=== PATIENT | male | born 1955 | race African-American/Black ===

== ENCOUNTER 2017-02-18 19:47 | Inpatient (IN) | payer OTHER ==
[~2017-02-18] VITALS: Ht 162.6 cm; Wt 59.6 kg
--- NOTE | ~2017-02-18 | CT23 ---
[facility] A Service of [facility] RADIOLOGY TEXT RESULTS PATIENT: DONN HAMM LOCATION: [facility] 338- : 57 UNIT #: [id number] AGE: [address]: Edmund Posada MD SEX: M ORDER DR: [id number] [facility] [address] [facility]. [place], [place] [address] [id number] I MR#: [id number] #: [id number] NAME: DONN HAMM : 1955 SEX: M STUDY DATE/TIME: 02/18/2017 23:31 UNIT: [address] ROOM: [facility] STUDY DESCRIPTION: CT Angio Neck Attending Physician: Edmund Posada M.D. Ordering Physician: Chuy Edmondson M.D. Primary Care Physician: No Primary Care Physician MEDICAL IMAGING REPORT This report is preliminary unless electronic signature is present EXAM Head and neck CT angiogram with contrast. DATE OF STUDY 02/18/2017 PROCEDURE Axial contrast-enhanced head and neck CT angiogram with three-dimensional reformats. This CT exam was performed with one or more of the following radiation dose reduction techniques: automatic exposure control, adjustment of mA and/or kV according to patient size, and iterative reconstruction. COMPARISON Head CT same date. CLINICAL HISTORY Left arm numbness and tingling paresthesias since 0600 on the morning of the exam with left monocular blurred vision. FINDINGS There is a normal arch branching pattern. There is no proximal great vessel stenosis. There is left vertebral dominance but both vessels are widely patent from their origins. The cervical common carotid and carotid bifurcations are normal without plaque or stenosis by NASCET or other criteria. The upper cervical internal carotids are normal. Both vertebral arteries contribute to the basilar artery. The anterior communicator is patent. The posterior communicators are probably patent bilaterally. There is intracranial vessel irregularity but no aneurysm. There is abrupt occlusion of the right posterior cerebral artery at about the level of the P1/P2 junction. There is [facility] A Service of [facility] RADIOLOGY TEXT RESULTS PATIENT: DONN HAMM [id number] : [birth year] UNIT #: [id number] AGE: [address]: Edmund Posada MD SEX: M ORDER DR: hypoperfusion in the right occipital lobe and the distal right posterior cerebral artery territory. Findings appear to indicate a completed right ACCOUNTS RECEIVABLE ACCOUNTANT territory infarct without hemorrhagic conversion. Other areas of vessel narrowing and irregularity are seen but without convincing evidence of any other branch vessel occlusion. The dural venous sinuses are normal. There is no mass or abnormal enhancement. There is encephalomalacia in the right cerebellar hemisphere, and it is unclear whether the changes in the right occipital lobe are acute or chronic, though it is possible that there are components of both. IMPRESSION 1. The extracranial circulation is normal. There is no stenosis at either carotid bifurcation by NASCET criteria and in fact the carotid bifurcations appear normal without plaque or narrowing or irregularity of any kind. The vertebral arteries are patent as well. 2. Intracranially, there is fairly abrupt occlusion of the right posterior cerebral artery at the P1/P2 junction. There is hypoperfusion in the right ACCOUNTS RECEIVABLE ACCOUNTANT territory and there is at least a completed right ACCOUNTS RECEIVABLE ACCOUNTANT territory infarct, though it is possible that the findings there are chronic, in fact, the unenhanced head CT suggests a more chronic process. There is right cerebellar encephalomalacia as well. 3. There is no intracranial hemorrhage and while there is moderate intracranial vessel irregularity with some areas of narrowing, no high-grade stenosis is seen and there is no intracranial aneurysm. The [place] of [place] appears probably complete. 4. Otherwise, the cervical soft tissues are unremarkable. There is dental and periodontal disease but almost certainly better assessed on physical exam and dental radiography. There is maxillary sinus mucosal thickening as well. Dictated by... Lyle Grey M.D. THIS IS AN ELECTRONICALLY VERIFIED REPORT Lyle Grey M.D. at 02/19/2017 4:58 PM PATRIZIA/ivonne TD: 02/19/2017 09:29 JOB #: [id number] MEDICAL IMAGING REPORT Page 1 of 1 COPY
--- NOTE | ~2017-02-18 | EKG ---
PATIENT: DONN HAMM UNIT #: [id number] Ventricular Rate: 56 BPM Atrial Rate: 56 BPM P-R Interval: 170 ms QRS Duration: 88 ms Q-T Interval: 396 ms QTC Calculation(Bezet): 382 ms P [place]: 32 degrees Calculated R [place]: 41 degrees Calculated T [place]: 47 degrees Diagnosis Line: Sinus bradycardia Diagnosis Line: Otherwise normal ECG Diagnosis Line: No previous ECGs available Diagnosis Line: Confirmed by MARIXA FRANK MD ([id number]) on 02/20/2017 Diagnosis Line: 4:54:54 PM INTERPRETING MD: ZAC ARMANDO
--- NOTE | ~2017-02-18 | CT71 ---
[facility] A Service of [facility] RADIOLOGY TEXT RESULTS PATIENT: DONN HAMM LOCATION: [facility] 338-01 : 59 UNIT #: [id number] AGE: [address]: Edmund Posada MD SEX: M ORDER DR: [id number] [place] [id number] [facility]. [place], [place] [address] [id number] I MR#: [id number] Acc #: [id number] NAME: DONN HAMM : 1955 SEX: M STUDY DATE/TIME: 02/18/2017 23:29 UNIT: [address] ROOM: [facility] STUDY DESCRIPTION: CT Head Wo Contrast Attending Physician: Edmund Posada M.D. Ordering Physician: Chuy Edmondson M.D. MEDICAL IMAGING REPORT This report is preliminary unless electronic signature is present EXAM CT head, noncontrast, 02/18/2017 HISTORY 61-year-old male in the ED with new onset neurologic deficit today. He describes left arm numbness and tingling and blurred left eye vision beginning at about [address] examination of the head without IV contrast. This CT exam was performed with one or more of the following radiation dose reduction techniques: automatic exposure control, adjustment of mA and/or kV according to patient size, and iterative reconstruction. FINDINGS The examination shows subacute infarct in the territory of the right posterior cerebral artery involving the midline occipital lobe and extending forward into the temporal lobe adjacent to the thalamus. No evidence of hemorrhage. No additional intracranial lesion is identified. Followup MRI examination of the brain is recommended. IMPRESSION 1. Subacute infarct in the territory of the right posterior cerebral artery involving temporal and midline occipital lobes. No evidence of hemorrhage. No additional intracranial lesion is demonstrated. 2. Followup MRI examination of the brain is recommended. CTA examination is pending. STAT * RESULT [facility] A Service [facility] RADIOLOGY TEXT RESULTS PATIENT: DONN HAMM LOCATION: [facility] 338-01 : 59 UNIT #: [id number] AGE: [address]: Edmund Posada MD SEX: M ORDER DR: Dictated by... Karel Rivers M.D. THIS IS AN ELECTRONICALLY VERIFIED REPORT Karel Rivers M.D. at 02/19/2017 9:48 PM RAGHU/ryan TD: 02/19/2017 00:31 JOB #: [id number] MEDICAL IMAGING REPORT Page 1 of 1 COPY
--- NOTE | ~2017-02-18 | DS ---
Unit #: [id number] #: [id number] Patient: DONN HAMM [id number] [address] [place], [place] [address] [id number] I MR#: [id number] NAME: DONN HAMM ROOM: 338 Age: 61 Sex: M Admission Date: 02/19/2017 : 1955 Discharge Date: 02/24/2017 Attending Physician: Torres Churchill M.D. Primary Care Physician: No Primary Care Physician DISCHARGE SUMMARY REASON FOR ADMISSION Right posterior circulation, arterial stroke. HISTORY OF PRESENT ILLNESS/HOSPITAL COURSE Please see H and P for initial part of hospital stay. Patient underwent an MRI of brain without contrast, dictated and dated on 02/19/2017. Findings were consistent with large thromboembolic insult on the right posterior cerebral artery distribution. There was local mass effect but no hemorrhagic transverse transformation , which was noted. The patient subsequently was placed under stroke protocol. Dr. Obrien was consulted from neurology services. Patient ultimately underwent 2D echocardiogram, which did show patent PFO, ejection fraction 60% to 65%. At this point in time, patient has gone through physical and occupational therapy. Initially recommendations was made for him to be transferred to rehab facility; however, per physical and occupational therapy he is now much more independent and is able to ambulate approximately 500 feet and therefore, stable for discharge home. Dr. Obrien has recommended Coumadin to be initiated in approximately four to six weeks. At this point in time, the patient will be discharged home. He will followup with his primary care physician in two to three weeks and in approximately four to six weeks post stroke he should be started on Coumadin with INR dosage between two to three. FINAL DISCHARGE DIAGNOSES 1. Acute cerebrovascular accident, posterior circulation. 2. 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 3. Hypertension. 4. Hyperlipidemia. DISCHARGE MEDICATIONS 1. Lotrel 5/20 one tablet p.o. daily. 2. Lipitor 80 mg p.o. q.h.s. 3. Aspirin 325 mg p.o. daily. DISCHARGE CONDITION Stable. DISCHARGE DISPOSITION Home. Home health to follow at time of discharge. Unit #: [id number] #: [id number] Patient: DONN HAMM Dictated by... Torres Churchill M.D. ISN/ts TD: 02/25/2017 12:11 JOB #: [id number] DISCHARGE SUMMARY Page 1 of 1 X Torres Churchill MD DISCHARGE SUMMARY
--- NOTE | ~2017-02-18 | A ---
[facility] Nutrition Therapy DATE: 02/20/17 Patient: DONN HAMM Physician: JOURDAN Address: [address] [place] [address] Room/Bed: [address] [place] [address], Zip: [place] [address] Admit Date: 02/19/17 Date of : 59 Height: 5 4 Weight: 134 61 NUTRITIONAL ASSESSMENT: REASON: Seen due to diagnosis Admitting dx: 61 y/o male admitted with CVA (MRI confirmed) PMH: HTN, HLD Anthropometrics: Ht: 64", Wt: 61 kg, BMI: 23 (normal) Labs: Cholesterol 225, LDL cholesterol 143 Assessment: Chart reviewed, events noted. See admitting dx and PMH as stated above. The patient is on a healthy heart diet, which he is tolerating with no chewing or swallowing difficulties. He consumed ~75% of his lunch. He is interest in healthy heart diet education, which was provided both verbally and with handouts. He showed limited understanding, did not ask questions. RD explained relationship between diet and heart disease/stroke risk. The patient was encouraged to maintain his current weight. RD left contact info for any further questions. Recommendations: Agree with healthy heart diet. Diet education was provided as stated above, RD contact info left. Please consult with any further nutritional needs. Respectfully, Saira Reese RD, [facility] [employer] [facility] cc: client file
--- NOTE | ~2017-02-18 | HM ---
Unit #: [id number] #: [id number] Patient: DONN HAMM [id number] [address] [address] [id number] I MR#: [id number] NAME: DONN HAMM : 1955 SEX: M STUDY DATE/TIME: UNIT: C3A U ROOM: [address] [place] [address] DESCRIPTION: Holter Monitor Attending Physician: Torres Churchill M.D. Primary Care Physician: Primary Care Physician No CARDIOLOGY REPORT EXAM Holter Monitor DATE APPLIED 02/19/2017 DATE SCANNED 02/25/[address] Ponce READ BY Dr. Shanel Vera REASON FOR TEST CVA COMMENTS 1. Underlying rhythm is normal sinus. Average heart rate is 64 beats per minute with a maximal recorded heart rate of 118 beats per minute and minimal recorded heart rate of 51 beats per minute. 2. A total of 41 isolated PVCs were seen in 24 hours without couplets or ventricular tachycardia. 3. A total of 4 premature atrial contractions are noted in 24 hours. There were no premature atrial couplets or atrial tachycardia. 4. No AV leonela block, sinus arrest or sinus pause is noted. IMPRESSION 24 hour ambulatory monitoring is within normal limits with rare PACs and rare PVCs. Dictated by... Dennys Bravo/lina TD: 02/26/2017 08:23 JOB #: [id number] Unit #: [id number] #: [id number] Patient: DONN HAMM CARDIOLOGY REPORT Page 1 of 1 X Adis Vera MD HOLTER MONITOR REPORT
--- NOTE | ~2017-02-18 | CO ---
Unit #: [id number] #: [id number] Patient: DONN HAMM [id number] [facility] [address] [facility]. [place], [place] [address] [id number] I MR#: [id number] NAME: DONN HAMM ROOM: 338 Age: 61 Sex: M Admission Date: 02/19/2017 : 1955 Attending Physician: Edmund Posada M.D. Primary Care Physician: Sophie Primary Care Physician Requesting Physician: Tiny Ponce M.D. Consultation Date: 02/19/2017 CONSULTATION REPORT REASON FOR CONSULTATION Stroke. PATIENT IDENTIFICATION This is a 61-year-old, right-handed, Prydeinig gentleman who was seen in room 338 at [facility]. SOURCE OF INFORMATION The patient and very detailed evaluation done by Dr. Ponce. PROBLEM LIST 1. Hypertension. 2. Hyperlipidemia. 3. He reports some marijuana use. HISTORY OF PRESENT ILLNESS This is a very pleasant, 61-year-old gentleman who actually presented with some vision changes and left-sided weakness. He presented at 7:47 p.m. yesterday and reported that the symptoms started in the morning when he woke up so he was not a TPA or intervention candidate. He ended up with a CT scan and CT scan did show significant changes in the right CERTIFIED PROSTHETIST/ORTHOTIST territory, but other areas may be involved and his MRI is pending. His CT also showed abnormalities and, specifically, one of the biggest concerns was right CERTIFIED PROSTHETIST/ORTHOTIST, likely occlusion. He is hypertension. His LDL is 147. His random glucose was high so 1 of the concern is that could he have other reasons like dysrhythmia, especially considering the posterior circulation type stroke. His echo and other results are pending. He never had TIAs. He does not use aspirin. No other drugs. No falls of injuries. No stroke in past, but have strokes in family. He is on pravastatin 20 mg for quite some time. PAST MEDICAL HISTORY As discussed above. PAST SURGICAL HISTORY Unit #: [id number] #: [id number] Patient: DONN HAMM None. ALLERGIES None. HOME MEDICATIONS 1. Lotrel. 2. I believe he was using pravastatin 20 mg. FAMILY HISTORY Strokes. SOCIAL HISTORY He lives with his son. He is originally from [facility]. Never smoked tobacco, but occasionally uses marijuana. Does not drink alcohol. REVIEW OF SYSTEMS Left-sided weakness, some vision changes. He denies any speech problems, fever, chills, rigors, or sweats. He denies any weight issues. HEENT: Left-sided vision changes. No neck problems. CARDIOVASCULAR: No chest pain, clubbing, cyanosis, orthopnea. No palpitations. PULMONARY: No shortness of air, cough, or expectoration. GASTROINTESTINAL: No nausea, vomiting, diarrhea, or constipation. GENITOURINARY: No genitourinary symptoms. MUSCULOSKELETAL: Extremity problems: Left-sided ataxia. No back problems. PSYCHIATRIC: No psychiatric issues. NEUROLOGIC: Issues with new stroke with deficit as discussed. No other hematologic, dermatologic, or endocrine problems. PHYSICAL EXAMINATION VITAL SIGNS: Temperature 98.2, pulse is 58, respirations are 16, blood pressure 142/86. Blood pressure went as high as 160 systolic and 105 diastolic. O2 sats are 97% to 100%. Weight of 134 pounds. BMI was 23. NEUROLOGIC EXAMINATION: The patient is awake. He is alert. He is oriented. He can name and he can follow commands. No right left confusion. No finger agnosia. CRANIAL NERVES: Examination demonstrates left homonomous hemianopia. Pupils are round and reactive to light and accommodation. Sensation on the face and scalp are normal. There may be minimal ptosis on the left side. I do not see any significant facial asymmetry otherwise. Hearing is intact. Tongue was midline and could not visualize his oropharynx or uvula. Head turning was spontaneous. MOTOR EXAMINATION: He has normal bulk and tone, but he is ataxic on the left side. There may be subtle weakness and drift in the left upper extremity and, also, left lower extremity. SENSORY EXAMINATION: He definitely has extinction on the left side. COORDINATION: Significant ataxia on the left side. Romberg negative. REFLEXES: Toes are moot. DIAGNOSTIC STUDIES Labs and imaging studies reviewed personally. IMPRESSION Right hemispheric stroke and it looks like there is definitely right CERTIFIED PROSTHETIST/ORTHOTIST infarct, but he has significant ataxia and he has neglect so probably Unit #: [id number] #: [id number] Patient: DONN HAMM parietal lobe involvement. Definitely we need to get a MRI. I also would request BOB and event monitor like Holter monitor to begin with. I will put him on aspirin and high dose Lipitor and we will go from there. Further treatment will be based on our findings and he probably will end up needing physical therapy and occupational therapy. Discussed with the team and stroke workup initiated and will follow up. I will keep you informed. Call me for any other questions, issues, or concerns. Dictated by... Dennys March/maida TD: 02/20/2017 07:39 JOB #: [id number] CONSULTATION REPORT Page 1 of 1 X Colt Obrien MD X CONSULTATION REPORT
--- NOTE | ~2017-02-18 | HP ---
Unit #: [id number] #: [id number] Patient: DONN HAMM [id number] [address] [place], [place] [address] [id number] I MR#: [id number] NAME: DONN HAMM ROOM: 338 Age: 61 Sex: M Admission Date: 02/19/2017 : 1955 Attending Physician: Tiny Ponce M.D. Primary Care Physician: No Primary Care Physician HISTORY AND PHYSICAL CHIEF COMPLAINT Right posterior circulation artery stroke. HISTORY This very pleasant 61-year-old male with hypertension and hyperlipidemia, is admitted for a stroke. The patient states he was well until early yesterday morning. He began to note left arm weakness and numbness with numbness in the left foot, left side of the head along with visual changes. He, therefore, presented to this emergency department at about 7:45 last evening outside the stroke window. A stat CT was performed showing a subacute CVA in the region of the right TCA. Wet read on the CTA shows an isolated abrupt occlusion of the P2 right REAL PROPERTY EVALUATOR. On examination, the patient has left hemianopsia with what I believe to be mild left sided neglect. If I get the patient to focus on his left side, he is still quite strong on the left, is a bit numb on the left as compared to the right but I believe he is fairly strong. In the ER he was treated with aspirin and potassium. PAST MEDICAL HISTORY 1. Essential hypertension. 2. Hyperlipidemia. ALLERGIES None. HOME MEDICATIONS 1. Pravachol 20 mg q. h.s. 2. Lotrel 5/20 mg daily. FAMILY HISTORY CVA. SOCIAL HISTORY The patient is originally from [facility]. He lives with his son. He never smoked tobacco, he does smoke occasional THC but denies other illicit drugs. Does not drink alcohol. REVIEW OF SYSTEMS Notable for visual changes, left sided numbness, weakness, hypertension, hyperlipidemia. All other systems were reviewed and otherwise negative. PHYSICAL EXAMINATION GENERAL: Very pleasant, thin, 61-year-old male, currently in no acute Unit #: [id number] #: [id number] Patient: DONN HAMM distress. VITAL SIGNS: Temperature 97, pulse 66, respirations 14, initial blood pressure 160/102 which has improved to 158/89. O2 saturation is 97% on room air. HEENT: Eyes PERRLA. Extraocular muscles are intact. Patient, however, has a left hemianopsia on exam. His pharynx is benign. NECK: Supple without adenopathy, thyromegaly or carotid bruits. CHEST: Clear. CARDIAC: Normal S1 and S2 without S3, S4 or murmur. ABDOMEN: Bowel sounds are present. No hepatosplenomegaly, tenderness or masses. EXTREMITIES: Without C, C or E. Pedal pulses are present. No ulcers on the feet. NEUROLOGIC EXAM: Patient is awake, alert, oriented x3. His cranial nerves are notable for a left hemianopsia. Although he has fairly equal strength throughout, he does have an element of left sided neglect. I have to remind him to use his left side. If I can remind him to use his left side, I do not believe he truly has a left pronator drift. He has decreased sensation subjectively on the left as compared to the right. Speech is fluent. DIAGNOSTIC STUDIES LABORATORY: Hematocrit is 45.3, normal white count and platelet count, MCV. Negative cardiac enzymes. Normal coags. SMA-12 - notable for potassium of 3.1. IMAGING: Noncontrasted head CT shows subacute CVA in the region of the right posterior circulation artery. Wet read on the CTA of the brain shows an isolated abrupt occlusion of the P2 right posterior circulation artery segment. ASSESSMENT 1. Right REAL PROPERTY EVALUATOR CVA with symptoms starting yesterday morning outside the tPA window. CT scan shows a subacute right REAL PROPERTY EVALUATOR CVA with an isolated occlusion of the P2 right REAL PROPERTY EVALUATOR vessel on CTA. 2. Essential hypertension. 3. Hypokalemia. 4. Hyperlipidemia. PLANS 1. Check lipid profile, MRI, echocardiogram, Holter monitor and consult neurology. 2. Continue aspirin for now which was started in the ER. 3. PT and OT to see in the morning. 4. Neuro checks q.4 hours. 5. SCDs for DVT prophylaxis. 6. Check urine tox screen. 7. IV fluids and recheck labs in the morning. 8. Potassium was replaced in the ER. Will recheck potassium level in the morning and obtain magnesium level. Dictated by Tiny Ponce M.D. Unit #: [id number] #: [id number] Patient: DONN HAMM AML/df TD: 02/19/2017 05:01 JOB #: [id number] HISTORY AND PHYSICAL Page 1 of 1 X Tiny Ponce MD HISTORY AND PHYSICAL
--- NOTE | ~2017-02-18 | MR18 ---
[facility] A Service of [facility] & [facility] RADIOLOGY TEXT RESULTS PATIENT: DONN HAMM LOCATION: A 338- : 57 UNIT #: [id number] AGE: [address]: Edmund Posada MD SEX: M ORDER DR: [id number] [facility] [address] [place], [place] [address] [id number] I MR#: [id number] Acc #: [id number] NAME: DONN HAMM : 1955 SEX: M STUDY DATE/TIME: 02/19/2017 12:07 UNIT: A U ROOM: [facility] STUDY DESCRIPTION: MR Brain Wo Contrast Attending Physician: Edmund Posada M.D. Ordering Physician: Tiny Ponce M.D. Primary Care Physician: Primary Care Physician No MRI CENTER REPORT This report is preliminary unless electronic signature is present. EXAM Brain MRI with and without HISTORY says right [employer] infarct. Additional history is left arm weakness and blurred vision since 6:00 a.m. on 02/18/17 COMMENT MRI of the brain was performed without contrast using routine 1.5T imaging technique. Head CT comparison and CT angiogram head and neck from 02/18/2017. There is abnormally restricted diffusion involving the right posterior cerebral artery distribution. This is a large insult most confluent at the posteromedial right occipital lobe including the calcarine cortex with smaller areas of involvement extending into right parietal cortex and right side of the splenium and corpus callosum, right thalamus and posteromedial aspect right temporal lobe. Appearance is consistent with a large thromboembolic insult to the right posterior cerebral artery distribution. There is no hemorrhagic transformation. There is chronic insult to the medial right cerebellar hemisphere with encephalomalacia more inferiorly. There is mild white matter signal abnormality in general, nonspecific probably due to small vessel disease. There is local mass effect but no midline shift or hydrocephalus. The major arterial intracranial flow voids are maintained at this time. The mastoid air cells are clear. There is mucosal disease in the paranasal sinuses, particularly the bilateral maxillary sinuses with a small air-fluid level on the right consistent with a component of acute sinusitis. Partly seen are degenerative changes in the visualized upper cervical spine. [facility] A Service of [facility] & [facility] RADIOLOGY TEXT RESULTS PATIENT: DONN HAMM LOCATION: C3A 338-01 : 59 UNIT #: [id number] AGE: [address]: Edmund Posada MD SEX: M ORDER DR: IMPRESSION 1. Findings are consistent with a large thromboembolic insult right posterior cerebral artery distribution. There is local mass effect but no hemorrhagic transformation. 2. There is a chronic insult to the right inferomedial cerebellar hemisphere. 3. Mild white matter disease probably due to small vessel disease. 4. Paranasal sinus disease including a small air-fluid level in the right maxillary sinus indicating a component of acute sinusitis. Dictated by... Martha Thomas M.D. THIS IS AN ELECTRONICALLY VERIFIED REPORT Martha Thomas M.D. at 02/19/2017 1:51 PM LYSSA/netta TD: 02/19/2017 13:33 JOB #: [id number] MRI CENTER REPORT Page 1 of 1 COPY
--- NOTE | ~2017-02-18 | CT17 ---
[facility] A Service of [facility] & [facility] RADIOLOGY TEXT RESULTS PATIENT: DONN HAMM LOCATION: [facility] 338-01 : 57 UNIT #: [id number] AGE: [address]: Edmund Posada MD SEX: M ORDER DR: [id number] [place], [place] [address] [id number] I MR#: [id number] Acc #: [id number] NAME: DONN HAMM : 1955 SEX: M STUDY DATE/TIME: 02/18/2017 23:31 UNIT: [address] ROOM: [facility] STUDY DESCRIPTION: CT Angio Head Attending Physician: Edmund Posada M.D. Ordering Physician: Chuy Edmondson M.D. Primary Care Physician: No Primary Care Physician MEDICAL IMAGING REPORT This report is preliminary unless electronic signature is present EXAM Head CT angiogram with contrast. DATE OF STUDY 02/18/2017 CLINICAL HISTORY Left arm numbness and tingling paresthesias since 0600 on the morning of the exam with left monocular blurred vision. FINDINGS Result text under order number [id number]. Please see this order for result text. Dictated by... Lyle Grey M.D. THIS IS AN ELECTRONICALLY VERIFIED REPORT Lyle Grey M.D. at 02/19/2017 4:58 PM PATRIZIA/ivonne TD: 02/19/2017 09:31 JOB #: [id number] MEDICAL IMAGING REPORT Page 1 of 1 COPY
--- NOTE | ~2017-02-18 | EKG ---
PATIENT: DONN HAMM UNIT #: [id number] Ventricular Rate: 55 BPM Atrial Rate: 55 BPM P-R Interval: 162 ms QRS Duration: 88 ms Q-T Interval: 408 ms QTC Calculation(Bezet): 390 ms P [place]: 10 degrees Calculated R [place]: 12 degrees Calculated T [place]: 20 degrees Diagnosis Line: Sinus bradycardia Diagnosis Line: Moderate voltage criteria for LVH, may be normal Diagnosis Line: variant Diagnosis Line: Borderline ECG Diagnosis Line: When compared with ECG of 18-FEB-2017 21:38, Diagnosis Line: (unconfirmed) Diagnosis Line: No significant change was found Diagnosis Line: Confirmed by MARIXA FRANK MD ([id number]) on 02/20/2017 Diagnosis Line: 4:56:39 PM INTERPRETING MD: ZAC ARMANDO
[2017-02-18 22:31] LABS: BASOPHIL% 0.6 % (0-2.5); EOSINOPHIL% 0.4 % (0.0-7.0); HEMATOCRIT 45.3 % (38.0-50.0); LYMPHOCYTE# 2.5 X10e3 (1.0-3.5); LYMPHOCYTE% 35.5 % (17.0-45.0); MEAN CELL VOLUME 87.7 FL (83-96); MEAN CORPUSCULAR HGB CONC 33.1 g/dL (30-36); MEAN PLATELET VOLUME 7.5 FL (6.5-11.5); MONOCYTE# 0.7 X10e3 (0-1.0); MONOCYTE% 9.5 % (3.0-12.0); NEUTROPHIL# 3.9 X10e3 (1.5-7.1); PLATELET COUNT 232 X10e3 (140-420); RED BLOOD COUNT 5.17 X10e (3.90-5.60); RED CELL DISTRIBUTION WIDTH 14.5 % (11.0-15.5); WHITE BLOOD COUNT 7.1 X10e3 (4.0-10.5)
[2017-02-18 22:32] LABS: DIFF IND NO
[2017-02-18 22:55] LABS: POC - CKMB 4.6 ng/mL (0.0-7.9); POC - TROPONIN <0.05 ng/mL (<=0.05)
[2017-02-18 22:59] LABS: ALBUMIN SERUM 4.1 g/dL (3.5-5.0); BILIRUBIN, DIRECT 0.1 mg/dL (0.0-0.2); BILIRUBIN,INDIRECT 0.6 mg/dL (0.0-0.9); BILIRUBIN,TOTAL 0.7 mg/dL (0.2-2.0); BUN/CREATININE RATIO 6.25; CALCIUM SERUM 9.2 mg/dL (8.4-10.2); CREATININE SERUM 0.8 mg/dL (0.6-1.4); GLOM FILT RATE Estimated 113.4 mL/min (>60); POTASSIUM 3.1 mmol/L (3.5-5.1); PROTEIN TOTAL SERUM 7.6 g/dL (6.0-8.3)
[2017-02-18 23:28] LABS: INR 1.1; PARTIAL THROMBOPLASTIN TIME 29.5 SECONDS (23.5-31.3); PROTHROMBIN TIME (PATIENT) 11.8 SECONDS (10.0-11.7)
[2017-02-19] MEDS ORDERED: PRAVASTATIN SOD20 MG PO (01:03)
[2017-02-19] MEDS ORDERED: LOTREL 5-20 MG1 EACH PO (01:04)
[2017-02-19 02:19] LABS: AMPHETAMINE NEG (NEG); BARBITURATES NEG (NEG); BENZODIAZEPINES NEG (NEG); COCAINE NEG (NEG); MARIJUANA POS (NEG); OPIATES NEG (NEG); TRICYCLIC ANTIDEPRESSANTS NEG (NEG); U METHADONE NEG (NEG)
[2017-02-19 08:52] LABS: HEMATOCRIT 44.6 % (38.0-50.0); HEMOGLOBIN 14.5 gm/dL (13.0-16.0); MEAN CELL VOLUME 88.4 FL (83-96); MEAN CORPUSCULAR HEMOGLOBIN 28.7 PG (28-34); MEAN CORPUSCULAR HGB CONC 32.4 g/dL (30-36); MEAN PLATELET VOLUME 7.5 FL (6.5-11.5); RED BLOOD COUNT 5.05 X10e (3.90-5.60); RED CELL DISTRIBUTION WIDTH 14.6 % (11.0-15.5); WHITE BLOOD COUNT 6.9 X10e3 (4.0-10.5)
[2017-02-19 09:24] LABS: BUN/CREATININE RATIO 6.25; CALCIUM SERUM 9.4 mg/dL (8.4-10.2); CREATININE SERUM 0.8 mg/dL (0.6-1.4); GLOM FILT RATE Estimated 113.4 mL/min (>60); MAGNESIUM 1.9 mg/dL (1.6-3.0); POTASSIUM 4.2 mmol/L (3.5-5.1)
[2017-02-19 09:43] LABS: %MB 1.2 % (0.0-4.0); MB 4.6 ng/ml
[2017-02-19 19:44] LABS: FOLATE (FOLIC ACID) 20.7 ng/mL (>5.8)
[2017-02-20 05:53] LABS: CHOLESTEROL 225 mg/dL (0-200); HDL CHOLESTEROL 71 mg/dL (29-75); LDL/HDL RATIO 2 RATIO (0-4); TRIGLYCERIDES 54 mg/dL (10-160)
[2017-02-20 05:54] LABS: LDL CHOLESTEROL 143 mg/dL (-130)
[2017-02-23 06:17] LABS: HEMOGLOBIN 14.7 gm/dL (13.0-16.0); MEAN CELL VOLUME 88.1 FL (83-96); MEAN CORPUSCULAR HEMOGLOBIN 29.4 PG (28-34); MEAN CORPUSCULAR HGB CONC 33.3 g/dL (30-36); RED CELL DISTRIBUTION WIDTH 14.6 % (11.0-15.5); WHITE BLOOD COUNT 5.4 X10e3 (4.0-10.5)
[2017-02-23 07:58] LABS: BUN/CREATININE RATIO 13.33; CALCIUM SERUM 9.4 mg/dL (8.4-10.2); CREATININE SERUM 0.9 mg/dL (0.6-1.4); POTASSIUM 4.1 mmol/L (3.5-5.1)
[2017-02-24] MEDS ORDERED: ATORVASTATIN CA80 MG PO (14:58)
[2017-02-24] MEDS ORDERED: BAYER ASPIRIN325 M1 PO (14:58)
[2017-02-24] MEDS ORDERED: TYL325 PO (14:59)
== END 2017-02-24 17:46 | disposition home health service (06) | DRG 65 ==
LOC: CED 19:47 → CEDOF 02-19 01:22 → C3A PCU 02-19 01:40 → CEDOF 02-19 02:11 → C3A PCU 02-19 07:45
PROVIDERS: Emergency Medicine; Family Medicine; Internal Medicine; Psychiatry & Neurology Neurology
PROC: B325YZZ Computerized Tomography (CT Scan) of Bilateral Common Carotid Arteries using Other Contrast (ICD-10-PCS; 2017-02-18)
PROC: B328YZZ Computerized Tomography (CT Scan) of Bilateral Internal Carotid Arteries using Other Contrast (ICD-10-PCS; 2017-02-18)
PROC: B246YZZ Ultrasonography of Right and Left Heart using Other Contrast (ICD-10-PCS; principal; 2017-02-19)
PROC: B32GYZZ Computerized Tomography (CT Scan) of Bilateral Vertebral Arteries using Other Contrast (ICD-10-PCS; 2017-02-19)
DX: I63.331 Cerebral infarction due to thrombosis of right posterior cerebral artery (principal); G81.94 Hemiplegia, unspecified affecting left nondominant side; I10 Essential (primary) hypertension; Q21.1 Atrial septal defect; E78.5 Hyperlipidemia, unspecified; H53.47 Heteronymous bilateral field defects; E87.6 Hypokalemia; F12.10 Cannabis abuse, uncomplicated
CPT/HCPCS: 36415; 70450; 70496; 70498; 70551; 80048; 80061; 80076; 80307; 82550; 82553; 82607; 82746; 82947; 83036; 83735; 84484; 85025; 85027; 85610; 85730; 86140; 92610; 93005; 93225; 93226; 93306; 93312; 97110; 97112; 97116; 97162; 97166; 97535; 99285; G8978-GP; G8979-GP; G8987-GO; G8988-GO; G8996-GN; G8997-GN; G8998-GN; J2250; J3010; Q9967

== ENCOUNTER 2017-03-09 14:43 | Inpatient (IN) | payer OTHER ==
[~2017-03-09] VITALS: Ht 162.6 cm; Wt 68.0 kg
--- NOTE | ~2017-03-09 | CT71 ---
[facility] A Service of [facility] RADIOLOGY TEXT RESULTS PATIENT: DONN HAMM LOCATION: [facility] 313-01 : 59 UNIT #: [id number] AGE: [address]: Nupur Irby MD SEX: M ORDER DR: [id number] [facility] [address] [place], [place] [address] [id number] I MR#: [id number] Acc #: [id number] NAME: DONN HAMM : 1955 SEX: M STUDY DATE/TIME: 03/09/2017 18:37 [facility] ROOM: [facility] STUDY DESCRIPTION: CT Head Wo Contrast Attending Physician: Nupur Irby M.D. Ordering Physician: Daniel Prado D.O. Primary Care Physician: No Primary Care Physician MEDICAL IMAGING REPORT This report is preliminary unless electronic signature is present EXAM CT brain without contrast. HISTORY Left-side face and arm and leg pain and numbness today. Recent right COTA infarct on 02/18/2017. TECHNIQUE This CT exam was performed with one or more of the following radiation dose reduction techniques: automatic exposure control, adjustment of mA and/or kV according to patient size, and iterative reconstruction. FINDINGS CT brain without contrast demonstrates interval evolution of the right posterior cerebral artery distribution infarct in the parasagittal right occipital lobe with mild encephalomalacia in the infarcted territory. No intracranial hemorrhage or mass. No midline shift or ventricular dilatation. No extraaxial fluid collection. IMPRESSION 1. No acute findings. 2. Interval evolution of late subacute infarct in the right posterior cerebral artery distribution compared to 02/18/2017 with developing encephalomalacia in the infarcted territory, primarily along the parasagittal right occipital lobe. Dictated by... Han Hanson M.D. THIS IS AN ELECTRONICALLY VERIFIED REPORT Han Hanson M.D. at 03/10/2017 2:28 PM DFL/maida [facility] A Service of [facility] RADIOLOGY TEXT RESULTS PATIENT: DONN HAMM LOCATION: [facility] 313-01 : [birth year] UNIT #: [id number] AGE: [address]: Nupur Irby MD SEX: M ORDER DR: TD: 03/10/2017 13:26 JOB #: [id number] MEDICAL IMAGING REPORT Page 1 of 1 COPY
--- NOTE | ~2017-03-09 | MR18 ---
[facility] A Service of [facility] & [facility] RADIOLOGY TEXT RESULTS PATIENT: DONN HAMM LOCATION: C3A 313-01 : 59 UNIT #: [id number] AGE: [address]: Nupur Irby MD SEX: M ORDER DR: [id number] [facility] [address] [place], [place] [address] [id number] I MR#: [id number] Acc #: [id number] NAME: DONN HAMM : 1955 SEX: M STUDY DATE/TIME: 03/09/2017 19:46 UNIT: C3A PCU ROOM: [facility] STUDY DESCRIPTION: MR Brain Wo Contrast Attending Physician: Nupur Irby M.D. Ordering Physician: Daniel Prado D.O. Primary Care Physician: Primary Care Physician No MRI CENTER REPORT This report is preliminary unless electronic signature is present. EXAM Brain MRI without contrast PROCEDURE Routine unenhanced brain MRI COMPARISON Prior MRI dated 02/19/2017 CLINICAL HISTORY Blurred vision and left hand numbness for 4-5 days. Recent right posterior cerebral artery territory infarct. FINDINGS In addition to expected non hemorrhagic maturation of the right COMMUNITY MARKETING MANAGER territory infarct seen on the prior study, there is new abnormal diffusion and T2 signal in the splenium of the corpus callosum particularly along its right hand margin. This may represent active Wallerian degeneration or a new ischemic insult, but again is nonhemorrhagic. It is at the margin of the previously identified lesion. No other new area of ischemic insult is seen and again there is no hemorrhagic conversion. Normal flow voids are seen in the cerebral vessels. The extracranial structures are remarkable only for some slight right maxillary sinus mucosal thickening. IMPRESSION While there is expected nonhemorrhagic maturation on the right posterior cerebral artery territory infarct, there is new abnormal T2 and FLAIR and diffusion signal in the spleen of the corpus callosum and right forceps major. There is minimal if any accompanying signal change on the ADC map. 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 The time course would be certainly in keeping with that and the lack of the abnormal signal on the ADC map makes new or the minimal abnormal signal on STS. [facility] A Service of [facility] & [facility] RADIOLOGY TEXT RESULTS PATIENT: DONN HAMM LOCATION: C3A 313-01 : 59 UNIT #: [id number] AGE: [address]: Nupur Irby MD SEX: M ORDER DR: ADC map makes new ischemic insult relatively unlikely. Again there is no hemorrhagic transformation in the right COMMUNITY MARKETING MANAGER territory infarct. No other new abnormality is seen. Dictated by... Lyle Grey M.D. THIS IS AN ELECTRONICALLY VERIFIED REPORT Lyle Grey M.D. at 03/12/2017 2:09 PM TEV/to TD: 03/10/2017 15:22 JOB #: [id number] MRI CENTER REPORT Page 1 of 1 COPY
--- NOTE | ~2017-03-09 | DS ---
Unit #: [id number] #: [id number] Patient: DONN HAMM [id number] [facility] [place], [place] [address] [id number] I MR#: [id number] NAME: DONN HAMM ROOM: 313 Age: 61 Sex: M Admission Date: 03/09/2017 : 1955 Discharge Date: 03/10/2017 Attending Physician: Nupur Irby M.D. Primary Care Physician: No Primary Care Physician DISCHARGE SUMMARY SHORT STAY SUMMARY CHIEF COMPLAINT Left face, left arm, and left leg numbness and pain. HISTORY OF PRESENT ILLNESS A 61-year-old male who was recently discharge from [facility] on February 24, 2017 after being diagnosed with right posterior circulation arterial stroke. Patient had a large thromboembolic insult on the right posterior cerebral artery distribution. There was some local mass effect but no hemorrhagic transformation. Patient was found to have PFO with ejection fraction of 60% to 65%. Recommendation was to start Coumadin four to six weeks after the event. It has not been that much time. Patient has not seen his primary care provider, (1) . Patient has not been feeling well since discharge. He started having worsening of pain on the left upper extremity, left lower extremity, and left face and tingling sensations so came to ER for further evaluation to make sure there is no new stroke. Patient was admitted to telemetry unit. PAST MEDICAL HISTORY 1. 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 2. Hypertension. 3. Hyperlipidemia. HOME MEDICATIONS 1. Lotrel 5/20 daily. 2. Atorvastatin 80 mg nightly. 3. Rosendo aspirin 325 mg daily. 4. Tylenol 650 q.4 p.r.n. ALLERGIES No known drug allergies. FAMILY HISTORY CVA present. SOCIAL HISTORY Patient is from [facility]. He lives with his son. He does have a friend who takes him around. Patient has history of smoking weed. No history of alcohol abuse. REVIEW OF SYSTEMS Patient is complaining of (2) , not good vision on the left side, left-side weakness, numbness. No history of nausea or vomiting. No chest Unit #: [id number] #: [id number] Patient: DONN HAMM pain. No abdominal pain. No constipation or diarrhea. No syncopal episode. PHYSICAL EXAMINATION GENERAL: Patient is sitting in the chair in no major respiratory distress. VITAL SIGNS: Blood pressure is 106/82, respiratory rate 18, pulse 99, temperature 99. HEENT: Head is normocephalic. There does not seem to be any speech problem. Patient is awake, alert, and oriented x3. The patient has left homonymous hemianopsia, maybe mitosis. Tongue is midline. CHEST: Fair air entry. No additional sounds. CARDIOVASCULAR: S1, S2 positive. Regular rhythm. ABDOMEN: Soft. EXTREMITIES: Negative edema. CENTRAL NERVOUS SYSTEM: Patient is awake, alert, oriented x3. Patient does have decreased strength on the left upper and lower extremities. Patient has some ataxia. DIAGNOSTIC STUDIES LABORATORY: BMP shows sodium 135, potassium 3.1, chloride 99, BUN 12, creatinine 0.9. CBC shows WBC 7.3, hemoglobin 14.4, hematocrit 43.5, and platelet count 269,000. PT/INR 12.1 and 1.1. IMAGING: CT scan of the head without contrast shows no acute findings. Interval evolution of late subacute infarct in the right posterior cerebral artery distribution compared to February 18, 2017 with developing encephalomalacia in the infarcted territory. ASSESSMENT AND PLAN Patient was admitted to hospital to rule out any recurrent cerebrovascular accident. Patient had large right posterior circulation infarct which is evolving. MRI was done. CT scan was done. There is no new infarct. Patient was seen by Dr. Obrien and advised to continue same medication at this time. Patient will need to restart Coumadin after March 22 for patent foramen ovale. Patient should see his primary care provider. He does verbalize understanding. Plan of care has been discussed with patient at length. DISCHARGE INSTRUCTIONS 1. Followup primary care provider in three to five days. 2. Start Coumadin after March 22 for PFO. 3. Continue PT/OT. Dictated by... Nupur Irby M.D. Srinivas TD: 03/10/2017 16:11 JOB #: [id number] Unit #: [id number] #: [id number] Patient: DONN HAMM DISCHARGE SUMMARY Page 1 of 1 X Nupur Irby MD SUMMARY
--- NOTE | ~2017-03-09 | EKG ---
PATIENT: DONN HAMM UNIT #: [id number] Ventricular Rate: 84 BPM Atrial Rate: 84 BPM P-R Interval: 158 ms QRS Duration: 82 ms Q-T Interval: 360 ms QTC Calculation(Bezet): 425 ms P [place]: 70 degrees Calculated R [place]: 39 degrees Calculated T [place]: 49 degrees Diagnosis Line: Normal sinus rhythm Diagnosis Line: Moderate voltage criteria for LVH, may be normal Diagnosis Line: variant Diagnosis Line: Early repolarization Diagnosis Line: Borderline ECG Diagnosis Line: When compared with ECG of 19-FEB-2017 06:18, Diagnosis Line: Vent. rate has increased BY 29 BPM Diagnosis Line: Confirmed by BETTY MACK MD ([id number]) on Diagnosis Line: 03/10/2017 2:09:35 PM INTERPRETING MD: MARTINA ARMANDO
--- NOTE | ~2017-03-09 | CO ---
Unit #: [id number] #: [id number] Patient: DONN HAMM [id number] [facility] [address]. [place], [place] [address] [id number] I MR#: [id number] NAME: DONN HAMM ROOM: 313 Age: 61 Sex: M Admission Date: 03/09/2017 : 1955 Attending Physician: Nupur Irby M.D. Primary Care Physician: Primary Care Physician No Consultation Date: 03/10/2017 CONSULTATION REPORT REASON FOR CONSULTATION Stroke. PATIENT IDENTIFICATION This is a 61-year-old Indian gentleman, right-handed, who was evaluated in room 330 at [facility]. SOURCE OF INFORMATION The patient and previous records. PROBLEM LIST Recent large right RESIDENT DIRECTOR infarct with P2/3 area of acute occlusion and no significant intracranial disease, so he was advised to be on anticoagulation and to be started about 4 to 6 weeks after the stroke because of the extent of the infarct, so he went home and started noticing left-sided visual field deficits, which is the result of the stroke and also started feeling some numbness on the left side that got him concerned and worried and he came here. I am not sure if he went to the primary care physician. No falls or injuries. No seizure. His head CT was done and his brain MRI shows an area of signal change in the corpus callosum, but with no ADC chain, so likely Wallerian degeneration, but no acute stroke and I explained this to the patient. His other conditions are hypertension and hyperlipidemia. PAST MEDICAL HISTORY As discussed above. PAST SURGICAL HISTORY Nothing major. ALLERGIES None known to me. HOME MEDICATIONS Lotrel 5/20, Lipitor 80, aspirin 325. FAMILY HISTORY Stroke. SOCIAL HISTORY Unit #: [id number] #: [id number] Patient: DONN HAMM Lives with his son. He is originally from [facility]. Never smoked. Occasionally uses marijuana and does not drink alcohol. REVIEW OF SYSTEMS Mostly as discussed in the history of present illness with left-sided symptoms. PHYSICAL EXAMINATION VITAL SIGNS: Temperature 99 degrees Fahrenheit, pulse 73, respirations 18, blood pressure 106/82, O2 saturations were 98% to 100%, weight of 149 pounds, BMI was 25. NEUROLOGIC: The patient is awake. He is alert. He is oriented. He can name and he can follow commands. No right/left confusion. No finger agnosia. Cranial nerve examination demonstrated left homonymous hemianopia. His eye movements are conjugate. No ptosis. No nystagmus. Sensation on the face and scalp are normal. Strength of muscles of facial expression normal. Hearing seemed to be intact. Tongue was midline. Uvula was midline. Palate elevation was normal. Head turning was spontaneous. Motor examination demonstrated normal bulk, tone. Strength was 5-/5. Sensory examination decreased sensation on the left side, sometimes dysesthesia. I do not see anything else. I could not get any reflexes. Toes are mute. Gait and coordination otherwise were deferred. DIAGNOSTIC STUDIES LABORATORY RESULTS: Reviewed. Random glucose 89 to 167. IMAGING STUDIES: MRI reviewed. IMPRESSION Evolution of the prior stroke and some changes, which are probably for result of that. Nothing acute. Unfortunately, even if there were acute strokes, we could not anticoagulate. I will wait at least till the 03/22/2017 and then start on Coumadin slowly without any bridging and see how things go. I told the patient what to expect and social education was given. There is nothing else to add. Call me for any other questions, issues, or concerns and further treatment will be based on any findings. Call me for any other questions, issues, or concerns. Dictated by... Dennys March/lorena TD: 03/10/2017 17:21 JOB #: [id number] Unit #: [id number] #: [id number] Patient: DONN HAMM CONSULTATION REPORT Page 1 of 1 X Colt Obrien MD X CONSULTATION REPORT
[~2017-03-09 14:43] MED LIST: ATORVASTATIN CA80 MG PO; BAYER ASPIRIN325 M1 PO; LOTREL 5-20 MG1 EACH PO; PRAVASTATIN SOD20 MG PO; TYL325 PO
[2017-03-09 19:42] LABS: BASOPHIL# 0.1 X10e3 (0-0.3); BASOPHIL% 0.8 % (0-2.5); DIFF IND NO; EOSINOPHIL# 0.2 X10e3 (0-0.7); EOSINOPHIL% 2.3 % (0.0-7.0); HEMATOCRIT 43.5 % (38.0-50.0); HEMOGLOBIN 14.4 gm/dL (13.0-16.0); LYMPHOCYTE# 3.3 X10e3 (1.0-3.5); LYMPHOCYTE% 45.1 % (17.0-45.0); MEAN CELL VOLUME 87.3 FL (83-96); MEAN CORPUSCULAR HGB CONC 33.2 g/dL (30-36); MEAN PLATELET VOLUME 7.4 FL (6.5-11.5); MONOCYTE# 0.5 X10e3 (0-1.0); MONOCYTE% 6.8 % (3.0-12.0); NEUTROPHIL# 3.3 X10e3 (1.5-7.1); PLATELET COUNT 269 X10e3 (140-420); RED BLOOD COUNT 4.98 X10e (3.90-5.60); RED CELL DISTRIBUTION WIDTH 13.8 % (11.0-15.5); WHITE BLOOD COUNT 7.3 X10e3 (4.0-10.5)
[2017-03-09 20:03] LABS: INR 1.1; PARTIAL THROMBOPLASTIN TIME 27.9 SECONDS (23.5-31.3)
[2017-03-09 20:05] LABS: BUN/CREATININE RATIO 12.22; CALCIUM SERUM 9.3 mg/dL (8.4-10.2); CREATININE SERUM 0.9 mg/dL (0.6-1.4); POTASSIUM 3.3 mmol/L (3.5-5.1)
[2017-03-10] MEDS ORDERED: LOTENSIN20 MG PO (14:25)
[2017-03-10] MEDS ORDERED: NEURONTIN100 MG PO (14:25)
== END 2017-03-10 16:07 | disposition home or self-care (01) | DRG 57 ==
LOC: CED 14:43 → CEDOF 22:25 → CED 22:33 → CEDOF 22:33 → C3A PCU 03-10 08:04
PROVIDERS: Emergency Medicine
DX: I69.354 Hemiplegia and hemiparesis following cerebral infarction affecting left non-dominant side (principal); I10 Essential (primary) hypertension; E78.5 Hyperlipidemia, unspecified; Z82.3 Family history of stroke
CPT/HCPCS: 70450; 70551; 80048; 85025; 85610; 85730; 93005; 99285